=== PATIENT | male | born 1975 | race Caucasian/White ===

== ENCOUNTER 2022-08-15 14:31 | Outpatient (CLI) | payer MEDICAID, SELFPAY | END 2022-08-15 14:32 | disposition home or self-care (01) | PROVIDERS: PCP Physician Assistant Medical; Visit Provider Physician Assistant Medical | DX: I10 Essential (primary) hypertension (principal); E87.5 Hyperkalemia; E66.01 Morbid (severe) obesity due to excess calories; E11.9 Type 2 diabetes mellitus without complications | CPT/HCPCS: 80053; 80061; 84443 ==